=== PATIENT | female | born 1975 | race Caucasian/White ===

== ENCOUNTER 2017-04-17 20:31 | Observation (INO) ==
--- NOTE | 2017-04-17 21:01 | Emergency Department Note ---
START Narrative - START START: I examined this patient and my medical decision-making was reviewed with the Resident Physician. I agree with the documented findings, disposition and treatment plan as described except to the extent set forth below. 42-year-old female presents emergency room for headache and left facial numbness specifically involving the crack of the left mouth and lips. No right sided complaints. No left arm or left leg involvement. No speech or vision changes. She also has a diffuse headache. No history of this in the past. She does not smoke. No cardiac history. A workup for CVA TIA symptoms with a CT had an lab work. Patient will need to be admitted.
--- NOTE | 2017-04-17 21:02 | Emergency Department Note ---
Disposition Clinical Impression: Left facial numbness Headache Qualifiers: Headache type: unspecified Headache chronicity pattern: unspecified pattern Intractability: not intractable Qualified Code(s): R51 - Headache Disposition: Admitted As Inpatient Condition: Good Forms: ED Satisfaction Letter Time of Disposition: 21:39 General Adult HPI - General Chief complaint: ED Headache Stated complaint: head ache with funny feeling on leftside of face Time Seen by Provider: 04/17/17 20:34 Source: patient Nursing Notes Reviewed: Yes Vital Signs Reviewed: Yes - History of Present Illness HPI Narrative: Patient is a 42-year-old female who presents to emergency department with headache and left facial numbness. She states that this is been intermittent for the past 3 days. Patient denies any arm or leg involvement. No difficulty with speech or vision. Patient states that she has been somewhat nauseated. She states that the majority of the numbness is near the corner of the mouth on the left. She states that this comes and goes. She has never had anything like this before. Nothing seems to make this any better or worse. She has tried Tylenol without any relief. She states that she is having some sensitivity to light. She describes her headache as sharp and achy frontal aspect of her head. She rates the pain as 8 out of 10. She states she has had headaches in the past but this feels different because most of her headaches occur in the posterior aspect of her head and neck. Pain Scale: 8 - Related Data Previous Rx's Medication Instructions Recorded predniSONE [PredniSONE] 20 mg PO DAILY #10 tablet 01/26/17 Allergies Allergy/AdvReac Type Severity Reaction Status Date / Time No Known Allergies Allergy Verified 04/17/17 20:38 All systems ED: reviewed and negative except as stated. Neurological: Reports: headache, numbness (At the left corner of her mouth and the left side of the face) Past Medical History - Past Medical History Medical history: Reports: GERD, kidney stones, migraine, other Surgical history: Reports: cholecystectomy, other Psychiatric history: Reports: anxiety, depression ENV[employer]MENT[employer] SAF[employer]Y SPECIALIST history: Reports: other - Social History Smoking Status: Never smoker Smokeless Tobacco Status: No Alcohol use: Reports: occasionally Drug use: Reports: marijuana Physical Exam - General Limitations: no limitations General appearance: alert, in no apparent distress - Head Head exam: atraumatic, normocephalic - Eye Eye exam: Present: normal appearance, EOMI - Neck Neck exam: Present: normal inspection, full ROM, trachea midline - Respiratory Respiratory exam: Present: normal lung sounds bilaterally. Absent: respiratory distress - Cardiovascular Cardiovascular exam: Present: regular rate, normal rhythm, normal heart sounds, +S1, +S2 - Abdominal Exam Abdominal exam: Present: soft, Non-Tender, normal bowel sounds - Neurological Exam Neurological exam: Present: alert, oriented X3 - Expanded Neurological Exam Speech: Present: fluid speech Cranial nerves: EOM function (II, III, IV, ): Normal, facial sensation (V): Abnormal Left (Patient has decreased sensation on the left side of her face), facial palsy (VII): Normal, gag reflex (IX): Normal, spinal accessory function ( XI): Normal, tongue deviation (XII): Normal Cerebellar function: finger to nose: Normal, heel to fuentes: Normal Motor strength - LUE: 5/5 Motor strength - RUE: 5/5 Motor strength - LLE: 5/5 Motor strength - RLE: 5/5 Upper motor neuron exam: pronator drift: Absent bilaterally Sensory exam upper extremity: light touch: Normal Sensory exam lower extremity: light touch: Normal Coma Scale Eye Opening: Spontaneous Coma Scale Motor Response: Obeys Commands Coma Scale Verbal Response: Oriented Coma Scale Total: 15 - Psychiatric Psychiatric exam: Present: normal affect, normal mood - Skin Skin exam: Present: warm, dry, intact Course Vital Signs Temperature 97.4 F L 04/17/17 20:34 Pulse Rate 78 04/17/17 20:34 Respiratory Rate 18 04/17/17 20:34 Blood Pressure 155/102 04/17/17 20:34 O2 Sat by Pulse Oximetry 97 04/17/17 20:34 Temperature 97.4 F L 04/17/17 20:34 Pulse Rate 70 04/17/17 21:22 Respiratory Rate 16 04/17/17 21:22 Blood Pressure 133/76 04/17/17 21:22 O2 Sat by Pulse Oximetry 96 04/17/17 21:22 Oxygen Delivery Oxygen Delivery Room Air Medical Decision Making - MDM Narrative Medical decision making narrative: Due to the patient headache and numbness around the left corner of her mouth there is concern that the patient could be having a TIA due to these symptoms being intermittent. Patient will get a CT scan of her head. We also do a CBC, BMP, EKG and magnesium. Due to the patient's symptoms the patient will likely need to be admitted to the hospital. She will likely need a follow-up MRI to rule out stroke. Due to the patient's symptoms being ongoing for the past 3 days the patient is not a candidate for thrombolytics. CT of the head was negative for acute intracranial abnormality. The patient will need to be admitted to the hospital for further evaluation and management. The patient may need an MRI to further evaluate for stroke. We have called and spoke with the hospitalist and they have accepted the patient their service. The patient will be admitted to the hospital at this time. - Medical Records Medical records reviewed: Yes I reviewed the patient's medical records. - Lab Data Lab results reviewed: Yes I reviewed the patient's lab results. - Radiology Data Radiology results reviewed: Yes I reviewed the patient's radiology results. Head CT 04/17/17 20:53 IMPRESSION: No acute intracranial abnormality. If there is ongoing concern for stroke, MRI is more sensitive. D/ / Siddharth Rothman / Siddharth Rothman Interpreting Provider: Siddharth Rothman - EKG Data EKG #1 EKG attestation: Yes I reviewed and interpreted this EKG. EKG results narrative: EKG showed a sinus rhythm at a rate of 80 bpm, MN interval of 151, QS duration at 95, QTC of 421 with a normal axis.
[2017-04-17] MEDS ORDERED: Aspirin 325 MG TABLET PO ONE (21:22)
[2017-04-17 21:51] LABS: Basophils % 0.4 %; Eosinophils # 0.1 K/mcL (0.0-0.6); Eosinophils % 1.1 %; Hematocrit 44.8 % (35.3-44.9); Hemoglobin 14.2 g/dL (11.5-15.4); Immature Granulocytes % 0.4 % (0-4); Immature Platelets 5.9 % (1.1-6.1); Lymphocytes # 2.5 K/mcL (0.6-4.6); Lymphocytes % 25.8 %; Mean Corpuscular HGB Conc 31.7 g/dL (31.6-35.5); Mean Corpuscular Hemoglobin 28.1 pg (28.0-33.3); Mean Corpuscular Volume 88.5 fL (83.0-100.0); Mean Platelet Volume 11.1 fL (9.4-12.4); Monocytes # 0.6 K/mcL (0.0-1.3); Monocytes % 6.2 %; Neutrophils # 6.4 K/mcL (1.6-8.9); Platelet Count 244 K/mcL (140-400); Red Blood Count 5.06 M/mcL (3.82-4.97); Red Cell Distribution Width 13.2 % (11.5-14.5); Segmented Neutrophils % 66.1 %
[2017-04-17 22:00] LABS: Prothrombin Time 10.6 Seconds (9.4-12.1)
[2017-04-17 22:03] LABS: Activated Partial Thrombo Time 25.8 Seconds (26.0-36.0)
[2017-04-17 22:07] LABS: BUN/Creatinine Ratio 20 (6-26); Blood Urea Nitrogen 16 mg/dL (6-20); Calcium 8.9 mg/dL (8.6-10.3); Carbon Dioxide 26 mEq/L (23-29); Chloride 109 mEq/L (98-107); Glucose 122 mg/dL (70-105); Osmolality,Calculated 292 (280-300); Potassium 3.9 mEq/L (3.5-5.1); Sodium 140 mEq/L (136-145); eGFR For African Americans > 60 (> 60); eGFR For Non-African Americans > 60 (> 60)
[2017-04-17] MEDS ORDERED: Acetaminophen 325 MG TABLET PO PRN (22:48)
[2017-04-17] MEDS ORDERED: Ondansetron 4 MG/2 ML VIAL IVP PRN (22:48)
[2017-04-17] MEDS ORDERED: Naloxone 0.4 MG/ML INJ IVP PRN (22:48)
[2017-04-17] MEDS ORDERED: Melatonin 3 MG TABLET PO PRN (22:53)
--- NOTE | 2017-04-17 22:58 | Internal Med History&Physical ---
Date of Encounter: 04/17/17 Time of Encounter: 22:57 Assessment and Plan (1) Left facial numbness Current visit: Yes Status: Acute Likely diagnosis CVA/TIA or complicated migraine vs other. Will follow-up with stat MRI, lipid panel, echocardiogram, carotid ultrasound. Neurochecks Q4H. (2) Headache Current visit: Yes Status: Acute Could be related to CVA or other intracranial abnormality. Follow-up MRI. Complex migraine is also possible as she has had these in the past and she is complaining of photophobia, phonophobia, nausea with neuro symptoms. Continue with plan as per problem #1. May benefit from IV benadryl or compazine. Would avoid Excedrin and Triptans until stroke is ruled out. Qualifiers: Headache type: unspecified Headache chronicity pattern: unspecified pattern Intractability: not intractable Qualified Code(s): R51 - Headache (3) Elevated blood pressure reading Current visit: Yes Status: Acute Undiagnosed hypertension vs acute stress. Will monitor and give IV hydralazine prn. (4) Hyperglycemia Current visit: Yes Status: Acute Unsure if patient was fasting at the time of this lab draw. Will obtain hemoglobin a1c to evaluate for diabetes. Internal Medicine - H&P: HPI Admitted From: Home History of present illness: Patient is a 42-year-old female who presents to emergency department with headache and left facial numbness. She states that this is been intermittent for the past 3 days. Accompanied with nausea. Denies focal weakness, aphasia, slurred speech, blurry vision, palpitations, chest pain, gait abnormalities. Headache is sharp and pounding, generalized, lasting for hours sometimes all day. Tried aspirin and Tylenol without relief. She denies fevers/chills, neck stiffness. She has had migraines several years ago. Current headache worsens with light and loud noise. She has significant family history of CAD, both her grandfather and father diagnosed with CAD in their 40s. In ED, patient had CT done showing no acute intracranial abnormality. CBC and BMP were unremarkable outside of elevated glucose in 120s range. She received 325 mg aspirin. Past Med Surg Social Fam HX - Past Medical History Medical history: GERD, kidney stones, migraine, other Psychiatric history: anxiety, depression - Past Surgical History Surgical History: cholecystectomy, other - Social History Smoking Status: Former smoker Smokeless Tobacco Status: No Alcohol use: occasionally Drug use: none - Family History Father Living Status: Still Living Hx Family Cardiac Disorders: Yes (PA (multiple)) Hx Family Endocrine Disorder: Yes (DM) Hx Family Medical Disorders: Yes (HTN) Mother Living Status: Still Living Hx Family Endocrine Disorder: Yes (DM) Hx Family Medical Disorders: Yes (HTN) Internal Medicine - H&P: Meds 3 Allergy/AdvReac Type Severity Reaction Status Date / Time No Known Allergies Allergy Verified 04/17/17 20:38 All Systems PM: A 10-system review of systems was performed and is negative for pertinent findings except as documented above in the HPI. - Constitutional Constitutional: no chills, no fever(s), no night sweats - EENT Eyes: no change in vision, no discharge, no pain, no tunnel vision Nose, mouth and throat: no dysphagia, no nasal discharge, no neck pain, no sore throat - Cardiovascular Cardiovascular ROS IM: no chest pain, no diaphoresis, no dyspnea, no lightheadedness, no palpitations, no syncope - Gastrointestinal Gastrointestinal: no abdominal pain, no diarrhea, no hematemesis, no hematochezia, no melena, no nausea, no vomiting - Musculoskeletal Musculoskeletal ROS IM: no numbness, no tingling - Integumentary Integumentary IM: no rash, no unusual bruising - Neurological Neurological ROS: numbness (left perioral region), tingling, no abnormal gait, no abnormal hearing, no abnormal movements, no abnormal speech, no behavioral changes, no burning sensations, no confusion, no convulsions, no radicular pain , no restless legs, no tremor(s), no vertigo, no weakness - Constitutional Vitals: Temp Pulse Resp BP Pulse Ox 97.5 F L 75 16 133/89 97 04/17/17 22:26 04/17/17 22:26 04/17/17 22:26 04/17/17 22:26 04/17/17 22:53 General appearance: Present: A&O X 3, morbidly obese, no acute distress, answers questions appropriately - Head Head exam: Present: atraumatic, normocephalic - Eye Eye exam: Present: PERRL, conjuntiva pink, sclera anicteric Pupils: Present: PERRL - Neurological Exam Neurological exam: Present: alert, CN II-XII intact, normal gait, oriented X3, reflexes normal, no focal deficits, strengths equal and symetr throughout. Absent: pronater drift, facial droop, speech deficit Additional comments: DTR of left leg could not be done because patient has severe knee pain from past surgery. Left achilles reflex unable to be done because of chronic pain as well. Strength of lower leg is normal and equal to right leg. - Skin Skin exam: Present: dry, intact Internal Med - H&P Results - Labs CBC & Chem 7: 04/17/17 21:43 04/17/17 21:43
[2017-04-17] MEDS ORDERED: Prochlorperazine 10 MG/2 ML VIAL IM PRN (23:51)
[2017-04-18 05:34] LABS: Chol/HDL Ratio 4.4 (0-4.9)
[2017-04-18] MEDS ORDERED: *HR* Enoxaparin 40 MG/0.4 ML SYRINGE SQ SCH (06:00)
[2017-04-18] MEDS ORDERED: Aspirin 81 MG TAB.CHEW PO SCH (09:00)
[2017-04-18 11:01] VITALS: BP 107/68
--- NOTE | 2017-04-18 12:49 | Discharge Summary ---
Date of Encounter: 04/18/17 Time of Encounter: 08:20 - Discharge Diagnosis (1) Left facial numbness Priority: Secondary Status: Acute Comments: Pt admitted with c/o left facial numbness, intermittently for 3 days. No association with headache or dizziness. She does report nausea. Pt has no other deficits. Gait is steady, grasps are strong and equal jean, facial movement is symmetrical, speech is clear. Most likely due to atypical migraine. Echo suboptimal, EF 55-60%, no evidence of PFO, no significant valvular dysfunction. Elective IAN would provide improved image. Bilateral carotids normal bilaterally. Will send home with IMitrex 50mg po BID x 2/day Will give Fiorcet now. Pt will follow up with neurology in the clinic. Head CT 04/17/17 20:53 IMPRESSION: No acute intracranial abnormality. If there is ongoing concern for stroke, MRI is more sensitive. D/ / Siddharth Rothman / Siddharth Rothman Interpreting Provider: Siddharth Rothman Brain MRI 04/17/17 22:41 IMPRESSION: Unremarkable MRI of the brain without contrast. No acute intracranial abnormality. No acute infarction. D/ / Mary Carmen Dasilva MD / Mary Carmen Dasilva MD Interpreting Provider: Mary Carmen Dasilva MD Echocardiogram 04/18/17 10:00 Impressions: LVEF 55-60%. No evidence of PFO by color Doppler or agitated saline but suboptimal study. Elective IAN would provide improved diagnostic sensitivity for detection of cardioembolic source. No significant valvular dysfunction. Left Ventricular Wall Motion: Rest Echo Findings All wall segments showed normal motion. 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 I consulted Dr. Felix privately, pt can follow up in the office after discharge. Pt states that she was on "a little bit of everything" to help her migraine. Will send home with rx for Imitrex 50mg (3) Elevated blood pressure reading Priority: Secondary Status: Acute Comments: Blood pressure has normalized. Continue to monitor. (4) Hyperglycemia Priority: Secondary Status: Chronic Comments: A1c 6.0%, in the prediabetes range. Implement lifestyle modifications. (5) DVT prophylaxis Priority: Secondary Status: Acute Comments: Lovenox SQ - Discharge Medications Prescriptions: Aspirin 81 mg PO DAILY #30 tab.chew SUMAtriptan succinate [Imitrex] 50 mg PO Q2H PRN #6 tablet PRN Reason: Migraine Headache Home Medications: Aspirin 81 mg PO DAILY #30 tab.chew 04/18/17 [Rx] SUMAtriptan succinate [Imitrex] 50 mg PO Q2H PRN #6 tablet 04/18/17 [Rx] Allergies/Adverse Reactions: 3 Allergy/AdvReac Type Severity Reaction Status Date / Time No Known Allergies Allergy Verified 04/17/17 20:38 Procedures/tests Complete & Pending: Procedures Performed prior 72 hours Category Date Time Status MR head/brain wo con [MR] Stat MRI 04/17/17 22:41 Completed EV carotid duplex imaging BI Routine Y 04/18/17 10:00 Completed EV echocardiogram Routine Y 04/18/17 10:00 Completed Date of admission: 04/17/17 21:44 Primary care physician: PCP NONE Discharging clinician: Brenda Sevilla Anticipated date of discharge: 04/18/17 - Patient Status Disposition: Home, Self-Care Condition: Good Functional capacity at discharge: independent ambulation Overall status at discharge: patient is progressing back to baseline - Discharge Instructions Follow Up With: NONE,PCP [Primary Care Provider] - Additional Instructions: Please follow up with neurology and your PCP in the next 7-10 days for a recheck. Return to the ER as needed for any other problems or concerns. Resume your normal activities as tolerated. Take Imitrex as directed. - Diet and Activity Activity: increase activity as tolerated Diet: advance to your usual diet Hospital course: Ms. Riojas is a 42 year old female with PMH of migraines who presents with left facial numbness, most likely atypical migraine. MRI and head CT negative. Echo and carotids negative. Pt has no deficits. Labs and vitals are wnl and pt will need to follow up with neurology in the clinic. Pt is stable for discharge. - Time Spent with Patient Total time spent providing and/or coordinating discharge services: Less than 30 minutes - Constitutional Vitals: Temp Pulse Resp BP Pulse Ox 97.8 F 78 17 107/68 95 04/18/17 10:59 04/18/17 10:59 04/18/17 10:59 04/18/17 10:59 04/18/17 10:59 General appearance: Present: cooperative, A&O X 3, morbidly obese, pleasant, no acute distress, obese, answers questions appropriately - Head Head exam: Present: atraumatic, normal inspection, normocephalic - Eye Eye exam: Present: EOMI, normal appearance, conjuntiva pink, sclera anicteric. Absent: nystagmus - Neck Neck exam general surgery: Present: normal inspection, supple, trachea midline. Absent: lymphadenopathy, tenderness - Respiratory Respiratory exam: Present: CTAB. Absent: accessory muscle use, chest wall tenderness, prolonged expiratory phase, rales, rhonchi, wheezes - Cardiovascular Cardiovascular exam: Present: RRR, +S1, +S2. Absent: diastolic murmur, gallop, rubs, systolic murmur - GI/Abdominal GI/Abdominal exam: Present: normal bowel sounds, soft, no peritoneal signs. Absent: distended, hepatomegaly, tenderness - Extremities Exam Extremities exam: Present: normal capillary refill, normal inspection, warm, radial pulses palpable and symmetrical. Absent: calf tenderness, cyanotic, pedal edema, tenderness - Neurological Exam Neurological exam: Present: alert, motor sensory deficit, normal gait, oriented X3, no focal deficits, strengths equal and symetr throughout. Absent: altered, pronater drift, facial droop, speech deficit - Skin Skin exam: Present: dry, intact, normal color, warm. Absent: rash
[2017-04-18] MEDS ORDERED: Acetaminophen/Butalbital/CaffeineTABLET PO PRN (13:01)
== END 2017-04-18 13:54 | disposition home or self-care (01) ==
LOC: 3BNU 20:31 → EMEROO 20:31 → 3BNU 22:10
PROVIDERS: ADMIT Student in an Organized Health Care Education/Training Program; ATTEND Registered Nurse

== ENCOUNTER 2018-03-10 21:38 | Observation (INO) ==
[2018-03-10] MEDS ORDERED: Ondansetron 4 MG/2 ML VIAL IVP ONE (22:32)
[2018-03-10] MEDS ORDERED: *HR* HYDROmorphone (PF) 1 MG/ML SYRINGE IVP ONE (22:32)
[2018-03-10 22:48] LABS: Basophils % 0.4 %; Eosinophils # 0.1 K/mcL (0.0-0.6); Eosinophils % 0.8 %; Hematocrit 44.4 % (35.3-44.9); Hemoglobin 14.6 g/dL (11.5-15.4); Immature Granulocytes % 0.5 % (0-4); Lymphocytes # 1.8 K/mcL (0.6-4.6); Lymphocytes % 16.3 %; Mean Corpuscular HGB Conc 32.9 g/dL (31.6-35.5); Mean Corpuscular Hemoglobin 28.6 pg (28.0-33.3); Mean Corpuscular Volume 86.9 fL (83.0-100.0); Mean Platelet Volume 10.4 fL (9.4-12.4); Monocytes # 0.8 K/mcL (0.0-1.3); Monocytes % 7.1 %; Neutrophils # 8.2 K/mcL (1.6-8.9); Platelet Count 244 K/mcL (140-400); Red Blood Count 5.11 M/mcL (3.82-4.97); Red Cell Distribution Width 13.7 % (11.5-14.5); Segmented Neutrophils % 74.9 %
[2018-03-10] MEDS: 0.9 % Sodium Chloride 1,000 ML IVC SCH (22:57)
[2018-03-10 23:09] LABS: BUN/Creatinine Ratio 23 (6-26); Blood Urea Nitrogen 17 mg/dL (6-20); Calcium 9.3 mg/dL (8.6-10.3); Carbon Dioxide 24 mEq/L (23-29); Chloride 104 mEq/L (98-107); Glucose 140 mg/dL (70-105); Osmolality,Calculated 288 (280-300); Potassium 3.9 mEq/L (3.5-5.1); Sodium 137 mEq/L (136-145); eGFR For Non-African Americans > 60 (> 60)
[2018-03-10 23:17] LABS: Bilirubin,Urine Negative (Negative); Blood,Urine Moderate (Negative); Clarity,Urine Cloudy (Clear); Color,Urine Yellow (Yellow); Glucose,Urine (UA) Normal (Normal); Ketones,Urine Negative (Negative); Leukocyte Esterase,Urine Moderate (Negative); Nitrite,Urine Negative (Negative); PH,Urine 5.5 pH Units (5.0-8.0); Protein,Urine Negative (Neg-Trace); Specific Gravity,Urine 1.019 (1.010-1.025); Urobilinogen,Urine Normal (Normal)
[2018-03-10 23:19] LABS: Bacteria,Urine Few per hpf (None-Few); Hyaline Casts,Urine None Seen per lpf (None-Few); RBC,Urine 15-30 per hpf (0-3); Squamous Epithelial Cell,Urine Many per lpf (None-Few); WBC,Urine 30-50 per hpf (0-3)
[2018-03-11] MEDS ORDERED: Ketorolac 15 MG/ML VIAL IVP ONE (00:01)
[2018-03-11] MEDS ORDERED: Hyoscyamine 0.5 MG/ML MLS IVP ONE (00:01)
[2018-03-11] MEDS ORDERED: *HR* HYDROmorphone (PF) 1 MG/ML SYRINGE IVP ONE (00:01)
[2018-03-11] MEDS ORDERED: 0.9 % Sodium Chloride 1,000 ML IVC ONE (00:08)
--- NOTE | 2018-03-11 00:08 | Emergency Department Note ---
Disposition Clinical Impression: Kidney stone, Intractable pain Disposition: Admitted As Inpatient Condition: Fair Forms: ED Satisfaction Letter Time of Disposition: 00:10 Female Urogenital HPI - General Chief complaint: ED Urogenital-Female Stated complaint: Possible Kidney Stone Time Seen by Provider: 03/10/18 22:23 Source: patient Mode of arrival: ambulatory Limitations: no limitations Nursing Notes Reviewed: Yes Vital Signs Reviewed: Yes - History of Present Illness HPI Narrative: Patient presents to the ED with the acute onset of right-sided flank pain radiating to her right lower quadrant. Has a history kidney stones requiring retrieval in the past. States this feels similar. Onset was just couple hours ago. Some nausea but no vomiting. No fever, chills, chest pain, shortness of breath, other abdominal pain, diarrhea, rash, pain or swelling in her legs. - Related Data Previous Rx's Medication Instructions Recorded Aspirin 81 mg PO DAILY #30 tab.chew 04/18/17 SUMAtriptan succinate [Imitrex] 50 mg PO Q2H PRN #6 tablet 04/18/17 Amoxicillin [Amoxil] 500 mg PO BID #20 capsule 06/22/17 Benzonatate [Tessalon] 100 mg PO TID #15 capsule 06/22/17 Loratadine/Pseudophed (12 HR) 1 each PO BID #20 tab.er.12h 06/22/17 [Claritin D (12HR)] Ondansetron HCl [Zofran] 4 mg PO TID #15 tablet 06/22/17 Amoxicillin 875 mg PO BID #20 tablet 09/20/17 Guaifenesin [Mucinex] 1,200 mg PO BID #6 tbbp.12hr 09/20/17 Ibuprofen [Motrin] 600 mg PO Q6HR PRN #20 tab 09/20/17 Cetirizine HCl/Pseudoephedrine 1 each PO BID #14 tab.er.12h 09/27/17 [All Day Allergy-D Tablet] Lidocaine Patch [Lidoderm 5% patch] 1 each TP DAILY #10 adh..patch 10/06/17 Allergies Allergy/AdvReac Type Severity Reaction Status Date / Time No Known Allergies Allergy Verified 09/27/17 15:16 Review of Systems: As reviewed in the HPI. All other systems reviewed are negative or normal. Past Medical History - Past Medical History Attestation: Yes The following information was validated with the patient. Source: patient Medical history: Reports: kidney stones Surgical history: Reports: cholecystectomy, other Psychiatric history: Reports: anxiety, depression PISTON [employer] history: Reports: other - Social History Smoking Status: Former smoker Smokeless Tobacco Status: No Alcohol use: Reports: occasionally Drug use: Reports: none Physical Exam CONSTITUTIONAL: [well appearing, alert and in no acute distress, but does appear uncomfortable] EYES: [EOMI, clear conjunctiva, PERRLA] HENT: [Normocephalic, atraumatic, moist mucus membranes, normal oropharynx] NECK: [normal inspection, full ROM, trachea midline, no obvious swelling] PULMONARY: [normal lung sounds bilaterally, normal chest rise and fall, no respiratory distress or stridor, no wheezes, no rales, no rhonchi CARDIOVASCULAR: [regular rate, regular rhythm, normal heart sounds, no murmurs, distal extremities are warm and well perfused] GASTROINSTESTINAL: [soft, non-tender, non-rigid, non-distended, no guarding, no rebound, normal bowel sounds, positive right sided flank tenderness with some mild right-sided abdominal tenderness] GENITOURINARY/RECTAL: [deferred] NEUROLOGIC: [Alert, oriented x3, normal speech, moves all extremities] EXTREMITIES: [Normal inspection, full ROM, no tenderness, no pedal edema, normal capillary refill] MUSCULOSKELETAL: [no gross deformities, atraumatic] SKIN: [No cyanosis, no diaphoresis, normal color, warm, no rash] PSYCHIATRIC: [normal mood and affect] - General Limitations: no limitations General appearance: alert Course Course Narrative: Patient likely presenting with kidney stone. Will get CTA and attempt pain control. Patient does have an obstructing kidney stone. Her pain is been difficult to control, so we will admit for pain control and urology evaluation morning. Vital Signs Temperature 98 F 03/10/18 22:10 Pulse Rate 73 03/10/18 22:10 Respiratory Rate 20 03/10/18 22:10 Blood Pressure 136/97 03/10/18 22:10 O2 Sat by Pulse Oximetry 96 03/10/18 22:10 Temperature 98 F 03/10/18 22:10 Pulse Rate 73 03/10/18 22:10 Respiratory Rate 20 03/10/18 22:10 Blood Pressure 136/97 03/10/18 22:10 O2 Sat by Pulse Oximetry 96 03/10/18 22:10 Oxygen Delivery Oxygen Delivery Room Air Urogenital-Female - Lab Data Result diagrams: 03/10/18 22:30 03/10/18 22:30 Lab Results 03/10/18 03/10/18 03/10/18 Range/Units 22:30 22:30 23:01 WBC 11.0 (4.3-11.1) K/mcL RBC 5.11 H (3.82-4.97) M/mcL Hgb 14.6 (11.5-15.4) g/dL Hct 44.4 (35.3-44.9) % MCV 86.9 (83.0-100.0) fL MCH 28.6 (28.0-33.3) pg MCHC 32.9 (31.6-35.5) g/dL RDW 13.7 (11.5-14.5) % Plt Count 244 (140-400) K/mcL MPV 10.4 (9.4-12.4) fL Immature Gran % 0.5 (0-4) % Seg Neutrophils % 74.9 % Lymphocytes % 16.3 % Monocytes % 7.1 % Eosinophils % 0.8 % Basophils % 0.4 % Neutrophils # 8.2 (1.6-8.9) K/mcL Lymphocytes # 1.8 (0.6-4.6) K/mcL Monocytes # 0.8 (0.0-1.3) K/mcL Eosinophils # 0.1 (0.0-0.6) K/mcL Basophils # 0.0 (0.0-0.2) K/mcL Sodium 137 (136-145) mEq/L Potassium 3.9 (3.5-5.1) mEq/L Chloride 104 (98-107) mEq/L Carbon Dioxide 24 (23-29) mEq/L BUN 17 (6-20) mg/dL Creatinine 0.74 (0.60-1.20) mg/dL Est GFR ( Amer) > 60 (> 60) Est GFR (Non-Af Amer) > 60 (> 60) BUN/Creatinine Ratio 23 (6-26) Glucose 140 H (70-105) mg/dL Calculated Osmolality 288 (280-300) Calcium 9.3 (8.6-10.3) mg/dL Urine Color Yellow (Yellow) Urine Clarity Cloudy A (Clear) Urine pH 5.5 (5.0-8.0) pH Units Ur Specific [place] 1.019 (1.010-1.025) Urine Protein Negative (Neg-Trace) mg/dL Urine Glucose (UA) Normal (Normal) mg/dL Urine Ketones Negative (Negative) mg/dL Urine Blood Moderate H (Negative) Urine Nitrite Negative (Negative) Urine Bilirubin Negative (Negative) Urine Urobilinogen Normal (Normal) mg/dL Ur Leukocyte Esterase Moderate H (Negative) Urine Microscopic RBC 15-30 H (0-3) per hpf Urine Microscopic WBC 30-50 H (0-3) per hpf Ur Squamous Epith Cells Many H (None-Few) per lpf Urine Bacteria Few (None-Few) per hpf Hyaline Casts None Seen (None-Few) per lpf Ur Culture Indicated? NO. A (NO) Urine Test (Negative) 03/10/18 Range/Units 23:01 WBC (4.3-11.1) K/mcL RBC (3.82-4.97) M/mcL Hgb (11.5-15.4) g/dL Hct (35.3-44.9) % MCV (83.0-100.0) fL MCH (28.0-33.3) pg MCHC (31.6-35.5) g/dL RDW (11.5-14.5) % Plt Count (140-400) K/mcL MPV (9.4-12.4) fL Immature Gran % (0-4) % Seg Neutrophils % % Lymphocytes % % Monocytes % % Eosinophils % % Basophils % % Neutrophils # (1.6-8.9) K/mcL Lymphocytes # (0.6-4.6) K/mcL Monocytes # (0.0-1.3) K/mcL Eosinophils # (0.0-0.6) K/mcL Basophils # (0.0-0.2) K/mcL Sodium (136-145) mEq/L Potassium (3.5-5.1) mEq/L Chloride (98-107) mEq/L Carbon Dioxide (23-29) mEq/L BUN (6-20) mg/dL Creatinine (0.60-1.20) mg/dL Est GFR ( Amer) (> 60) Est GFR (Non-Af Amer) (> 60) BUN/Creatinine Ratio (6-26) Glucose (70-105) mg/dL Calculated Osmolality (280-300) Calcium (8.6-10.3) mg/dL Urine Color (Yellow) Urine Clarity (Clear) Urine pH (5.0-8.0) pH Units Ur Specific [place] (1.010-1.025) Urine Protein (Neg-Trace) mg/dL Urine Glucose (UA) (Normal) mg/dL Urine Ketones (Negative) mg/dL Urine Blood (Negative) Urine Nitrite (Negative) Urine Bilirubin (Negative) Urine Urobilinogen (Normal) mg/dL Ur Leukocyte Esterase (Negative) Urine Microscopic RBC (0-3) per hpf Urine Microscopic WBC (0-3) per hpf Ur Squamous Epith Cells (None-Few) per lpf Urine Bacteria (None-Few) per hpf Hyaline Casts (None-Few) per lpf Ur Culture Indicated? (NO) Urine Test Negative (Negative)
--- NOTE | 2018-03-11 00:08 | Emergency Department Note ---
Disposition Forms: ED Satisfaction Letter General Adult HPI - General Chief complaint: ED Urogenital-Female Stated complaint: Possible Kidney Stone Time Seen by Provider: 03/10/18 22:23 Source: patient Limitations: no limitations - History of Present Illness Pain Scale: 10 - Related Data Previous Rx's Medication Instructions Recorded Aspirin 81 mg PO DAILY #30 tab.chew 04/18/17 SUMAtriptan succinate [Imitrex] 50 mg PO Q2H PRN #6 tablet 04/18/17 Amoxicillin [Amoxil] 500 mg PO BID #20 capsule 06/22/17 Benzonatate [Tessalon] 100 mg PO TID #15 capsule 06/22/17 Loratadine/Pseudophed (12 HR) 1 each PO BID #20 tab.er.12h 06/22/17 [Claritin D (12HR)] Ondansetron HCl [Zofran] 4 mg PO TID #15 tablet 06/22/17 Amoxicillin 875 mg PO BID #20 tablet 09/20/17 Guaifenesin [Mucinex] 1,200 mg PO BID #6 tbbp.12hr 09/20/17 Ibuprofen [Motrin] 600 mg PO Q6HR PRN #20 tab 09/20/17 Cetirizine HCl/Pseudoephedrine 1 each PO BID #14 tab.er.12h 09/27/17 [All Day Allergy-D Tablet] Lidocaine Patch [Lidoderm 5% patch] 1 each TP DAILY #10 adh..patch 10/06/17 Allergies Allergy/AdvReac Type Severity Reaction Status Date / Time No Known Allergies Allergy Verified 09/27/17 15:16 Past Medical History - Past Medical History Medical history: Reports: kidney stones Surgical history: Reports: cholecystectomy, other Psychiatric history: Reports: anxiety, depression 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 - Social History Smoking Status: Former smoker Smokeless Tobacco Status: No Alcohol use: Reports: occasionally Drug use: Reports: none Physical Exam - General Limitations: no limitations General appearance: alert Course Vital Signs Temperature 98 F 03/10/18 22:10 Pulse Rate 73 03/10/18 22:10 Respiratory Rate 20 03/10/18 22:10 Blood Pressure 136/97 03/10/18 22:10 O2 Sat by Pulse Oximetry 96 03/10/18 22:10 Temperature 98 F 03/10/18 22:10 Pulse Rate 73 03/10/18 22:10 Respiratory Rate 20 03/10/18 22:10 Blood Pressure 136/97 03/10/18 22:10 O2 Sat by Pulse Oximetry 96 03/10/18 22:10 Oxygen Delivery Oxygen Delivery Room Air Medical Decision Making - Lab Data Result diagrams: 03/10/18 22:30 03/10/18 22:30 Lab Results 03/10/18 03/10/18 03/10/18 Range/Units 22:30 22:30 23:01 WBC 11.0 (4.3-11.1) K/mcL RBC 5.11 H (3.82-4.97) M/mcL Hgb 14.6 (11.5-15.4) g/dL Hct 44.4 (35.3-44.9) % MCV 86.9 (83.0-100.0) fL MCH 28.6 (28.0-33.3) pg MCHC 32.9 (31.6-35.5) g/dL RDW 13.7 (11.5-14.5) % Plt Count 244 (140-400) K/mcL MPV 10.4 (9.4-12.4) fL Immature Gran % 0.5 (0-4) % Seg Neutrophils % 74.9 % Lymphocytes % 16.3 % Monocytes % 7.1 % Eosinophils % 0.8 % Basophils % 0.4 % Neutrophils # 8.2 (1.6-8.9) K/mcL Lymphocytes # 1.8 (0.6-4.6) K/mcL Monocytes # 0.8 (0.0-1.3) K/mcL Eosinophils # 0.1 (0.0-0.6) K/mcL Basophils # 0.0 (0.0-0.2) K/mcL Sodium 137 (136-145) mEq/L Potassium 3.9 (3.5-5.1) mEq/L Chloride 104 (98-107) mEq/L Carbon Dioxide 24 (23-29) mEq/L BUN 17 (6-20) mg/dL Creatinine 0.74 (0.60-1.20) mg/dL Est GFR ( Amer) > 60 (> 60) Est GFR (Non-Af Amer) > 60 (> 60) BUN/Creatinine Ratio 23 (6-26) Glucose 140 H (70-105) mg/dL Calculated Osmolality 288 (280-300) Calcium 9.3 (8.6-10.3) mg/dL Urine Color Yellow (Yellow) Urine Clarity Cloudy A (Clear) Urine pH 5.5 (5.0-8.0) pH Units Ur Specific [place] 1.019 (1.010-1.025) Urine Protein Negative (Neg-Trace) mg/dL Urine Glucose (UA) Normal (Normal) mg/dL Urine Ketones Negative (Negative) mg/dL Urine Blood Moderate H (Negative) Urine Nitrite Negative (Negative) Urine Bilirubin Negative (Negative) Urine Urobilinogen Normal (Normal) mg/dL Ur Leukocyte Esterase Moderate H (Negative) Urine Microscopic RBC 15-30 H (0-3) per hpf Urine Microscopic WBC 30-50 H (0-3) per hpf Ur Squamous Epith Cells Many H (None-Few) per lpf Urine Bacteria Few (None-Few) per hpf Hyaline Casts None Seen (None-Few) per lpf Ur Culture Indicated? NO. A (NO) Urine Test (Negative) 03/10/18 Range/Units 23:01 WBC (4.3-11.1) K/mcL RBC (3.82-4.97) M/mcL Hgb (11.5-15.4) g/dL Hct (35.3-44.9) % MCV (83.0-100.0) fL MCH (28.0-33.3) pg MCHC (31.6-35.5) g/dL RDW (11.5-14.5) % Plt Count (140-400) K/mcL MPV (9.4-12.4) fL Immature Gran % (0-4) % Seg Neutrophils % % Lymphocytes % % Monocytes % % Eosinophils % % Basophils % % Neutrophils # (1.6-8.9) K/mcL Lymphocytes # (0.6-4.6) K/mcL Monocytes # (0.0-1.3) K/mcL Eosinophils # (0.0-0.6) K/mcL Basophils # (0.0-0.2) K/mcL Sodium (136-145) mEq/L Potassium (3.5-5.1) mEq/L Chloride (98-107) mEq/L Carbon Dioxide (23-29) mEq/L BUN (6-20) mg/dL Creatinine (0.60-1.20) mg/dL Est GFR ( Amer) (> 60) Est GFR (Non-Af Amer) (> 60) BUN/Creatinine Ratio (6-26) Glucose (70-105) mg/dL Calculated Osmolality (280-300) Calcium (8.6-10.3) mg/dL Urine Color (Yellow) Urine Clarity (Clear) Urine pH (5.0-8.0) pH Units Ur Specific [place] (1.010-1.025) Urine Protein (Neg-Trace) mg/dL Urine Glucose (UA) (Normal) mg/dL Urine Ketones (Negative) mg/dL Urine Blood (Negative) Urine Nitrite (Negative) Urine Bilirubin (Negative) Urine Urobilinogen (Normal) mg/dL Ur Leukocyte Esterase (Negative) Urine Microscopic RBC (0-3) per hpf Urine Microscopic WBC (0-3) per hpf Ur Squamous Epith Cells (None-Few) per lpf Urine Bacteria (None-Few) per hpf Hyaline Casts (None-Few) per lpf Ur Culture Indicated? (NO) Urine Test Negative (Negative) Attestation Statement - Attestation Attestation: I examined this patient and my medical decision-making was reviewed with the Resident Physician. I agree with the documented findings, disposition and treatment plan as described except to the extent set forth below. Findings consistent with obstructive uropathy. We will admit for urology consultation, pain control. Unfortunately the patient would not tolerate discharge that she is pale, vomiting, this is despite multiple medication interventions. She will be admitted for further management and supportive care.
[2018-03-11] MEDS ORDERED: Acetaminophen 325 MG TABLET PO PRN (00:23)
[2018-03-11] MEDS ORDERED: Naloxone 0.4 MG/ML INJ IVP PRN (00:23)
[2018-03-11] MEDS ORDERED: *HR* HYDROcodone/Acet 5/325 mg TABLET PO PRN (00:23)
--- NOTE | 2018-03-11 00:29 | Internal Med History&Physical ---
Date of Encounter: 03/11/18 Time of Encounter: 00:26 Internal Medicine - H&P: HPI Chief complaint: Abdominal pain Admitted From: Emergency Dept Plans for Post Hospital Care: Home History of present illness: Ms. Riojas is a 43 year old female with history of morbid obesity, hiatal hernia, and depression who presents with right-sided flank pain radiating to her right lower quadrant. She has had history of kidney stones in the past that required retrieval by urology. This started only a few hours ago this evening suddenly. Reports nausea with no vomiting. She is feeling "feverish" and has chills. The patient had a urinalysis that showed moderate amount of blood and moderate leukocyte esterase. In the ED she was hemodynamically stable . Labs were unremarkable. CT abdomen and pelvis showed mild right-sided hydronephrosis with a 1.2 mm calculus at the ureteral pelvic junction. There is also comment of hepatosplenomegaly which was not present previously on previous CTs. Denies headache, blurry vision, dizziness, chest pain, shortness breath, diarrhea, constipation, neurological symptoms. Past Med Surg Social Fam HX - Past Medical History Medical history: kidney stones Additional medical history: hernia, dysmenorrhea, adenomyosis, bilateral dermoid/teratomas, irregular heart beat Psychiatric history: anxiety, depression - Past Surgical History Surgical History: cholecystectomy, other Additional surgical history: lithotripsy x5, dermoid cyst removal, tubes in ears, partial hysterectomy, hypothermal ablation, left ankle/foot, LLE ACL repair. - Social History Smoking Status: Former smoker Smokeless Tobacco Status: No Alcohol use: occasionally Drug use: none - Family History Father Living Status: Still Living Hx Family Cardiac Disorders: Yes ([place] (multiple)) Hx Family Endocrine Disorder: Yes (DM) Mother Living Status: Still Living Hx Family Endocrine Disorder: Yes (DM) Internal Medicine - H&P: Meds Omeprazole [PriLOSEC] 20 mg PO DAILY 03/11/18 [History] Paroxetine [Paxil] 20 mg PO DAILY 03/11/18 [History] Allergy/AdvReac Type Severity Reaction Status Date / Time No Known Allergies Allergy Verified 09/27/17 15:16 All Systems PM: A 10-system review of systems was performed and is negative for pertinent findings except as documented above in the HPI. Review of systems: All systems reviewed are negative except for as mentioned above - Constitutional Vitals: Temp Pulse Resp BP Pulse Ox 98 F 73 20 136/97 96 03/10/18 22:10 03/10/18 22:10 03/10/18 22:10 03/10/18 22:10 03/10/18 22:10 Exam: GEN: NAD HEENT: AT, NC, No cyanosis, oral mucosa is moist, No JVD Lymphatics: No lymphadenoapthy Eyes: Extrocular muscles intact, anicteric CVS:RRR. S1, S2, No m/r/g RESP: CTAB ABD: Soft, right lower quadrant tenderness, ND, +BS EXT: No edema, No rashes, 2+ DP NEURO: Nonfocal, CN II-XII intact, No focal motor or sensory deficits Psych: Cooperative, Not anxious or depressed Internal Med - H&P Results - Labs CBC & Chem 7: 03/10/18 22:30 03/10/18 22:30 Labs: Short CBC 03/10/18 Range/Units 22:30 WBC 11.0 (4.3-11.1) K/mcL Hgb 14.6 (11.5-15.4) g/dL Hct 44.4 (35.3-44.9) % Plt Count 244 (140-400) K/mcL Neutrophils # 8.2 (1.6-8.9) K/mcL BMP 03/10/18 22:30 Sodium 137 Potassium 3.9 Chloride 104 Carbon Dioxide 24 BUN 17 Creatinine 0.74 Glucose 140 H Calcium 9.3 Urine 03/10/18 Range/Units 23:01 Urine Color Yellow (Yellow) Urine Clarity Cloudy A (Clear) Urine pH 5.5 (5.0-8.0) pH Units Ur Specific [place] 1.019 (1.010-1.025) Urine Protein Negative (Neg-Trace) mg/dL Urine Glucose (UA) Normal (Normal) mg/dL - Impressions ITS Impressions Abdomen/Pelvis CT 03/10/18 22:23 IMPRESSION: 1. Mild right hydronephrosis secondary to 1.2 mm calculus at the ureteropelvic junction. 2. Hepatosplenomegaly. 3. Diverticulosis without obvious inflammation. D/ / Kane Murray MD / Kane Murray MD Interpreting Provider: Kane Murray MD - Assessment and plan (1) Kidney stone Current Visit: Yes Status: Acute Assessment and plan: We will admit for pain control. has a small stone on the right measuring 1.2 mm. IV fluids. Antiemetics. We will strain her urine prn with voiding. We will consult neurology in the morning if she continues to be in pain and has not passed stone. Has needed stone retrieval in the past by urology. NPO for now. I have ordered blood cultures and urine cultures and started her on ceftriaxone empirically. (2) Hydronephrosis with urinary obstruction due to renal calculus Current Visit: No Status: Acute Assessment and plan: Likely due to kidney stone. We will monitor for now. Likely resolve with passing the kidney stone. (3) UTI (urinary tract infection) Current Visit: No Status: Acute Assessment and plan: This is not definitive. I have started her on abx empirically for now as mentioned above and ordered blood cultures and urine cultures Qualifiers: Urinary tract infection type: site unspecified Hematuria presence: with hematuria Qualified Code(s): N39.0 - Urinary tract infection, site not specified; R31.9 - Hematuria, unspecified (4) Hepatosplenomegaly Current Visit: Yes Status: Acute Assessment and plan: Unclear etiology. I have ordered LFTs and hepatitis panel. This may need followed up on in the outpatient setting. (5) Depression Current Visit: Yes Status: Acute Assessment and plan: resume home paxil Qualifiers: Depression Type: unspecified Qualified Code(s): F32.9 - Major depressive disorder, single episode, unspecified (6) Morbid obesity Current Visit: Yes Status: Acute Assessment and plan: counseled (7) DVT prophylaxis Current Visit: No Status: Acute Assessment and plan: Heparin subcutaneous - Time Spent With Patient Total time spent is greater than 50% in coordination of care (as documented) at patient's floor/unit and/or counseling patient:
[2018-03-11] MEDS ORDERED: Ondansetron 4 MG/2 ML VIAL IVP PRN (00:30)
[2018-03-11] MEDS: 0.9 % Sodium Chloride 1,000 ML IVC SCH ×3 (00:34→11:21)
[2018-03-11] MEDS ORDERED: cefTRIAXone 2,000 MG in Water for inj. (sterile) 20 ML 20 ML IVPB SCH (01:00)
[2018-03-11 01:21] LABS: Albumin 3.6 g/dL (3.5-5.7); Albumin/Globulin Ratio 1.3 (1.1-2.2); Bilirubin,Indirect 0.4 mg/dL (0.0-1.2); Bilirubin,Total 0.4 mg/dL (0.3-1.0); Globulin 2.7 g/dL (2.4-3.5); Total Protein 6.3 g/dL (6.4-8.9)
[2018-03-11 03:39] LABS: Hepatitis A Antibody IgM Nonreactive (Nonreactive); Hepatitis B Core IgM Nonreactive (Nonreactive); Hepatitis B Surface Antigen Nonreactive (Nonreactive); Hepatitis C Virus Antibody Nonreactive (Nonreactive)
[2018-03-11] MEDS: Ketorolac 15 MG/ML VIAL IVP SCH ×2 (05:09→11:22)
[2018-03-11] MEDS: *HR* Heparin 5,000 UNIT/ML VIAL SQ SCH ×2 (05:10→14:41)
[2018-03-11 11:00] VITALS: BP 99/65
--- NOTE | 2018-03-11 14:47 | Discharge Summary ---
- NOTES TO OUTPATIENT PROVIDER Notes to Outpatient Provider: f/u with PCP within 2 weeks. Orders not resulted at time of discharge: Pending orders 03/11/18 02:01 Culture,Blood [BC] Stat 03/11/18 05:19 Culture,Urine [RM] Stat Date of Encounter: 03/11/18 Time of Encounter: 14:44 - Discharge Diagnosis (1) UTI (urinary tract infection) Priority: Primary Status: Acute Qualifiers: Urinary tract infection type: site unspecified Hematuria presence: with hematuria Qualified Code(s): N39.0 - Urinary tract infection, site not specified; R31.9 - Hematuria, unspecified (2) Hydronephrosis with urinary obstruction due to renal calculus Priority: Primary Status: Acute (3) DVT prophylaxis Priority: Primary Status: Acute (4) Kidney stone Priority: Primary Status: Acute (5) Hepatosplenomegaly Priority: Primary Status: Acute (6) Morbid obesity Priority: Secondary Status: Chronic (7) Depression Priority: Secondary Status: Acute Qualifiers: Depression Type: unspecified Qualified Code(s): F32.9 - Major depressive di sorder, single episode, unspecified Hospital course: Ms. Riojas is a 43 year old female with history of morbid obesity, hiatal hernia, and depression who presents with right-sided flank pain radiating to her right lower quadrant. She has had history of kidney stones in the past that required retrieval by urology. This started only a few hours ago this evening suddenly. Reports nausea with no vomiting. She is feeling "feverish" and has chills. The patient had a urinalysis that showed moderate amount of blood and moderate leukocyte esterase. In the ED she was hemodynamically stable . Labs were unremarkable. CT abdomen and pelvis showed mild right-sided hydronephrosis with a 1.2 mm calculus at the ureteral pelvic junction. There is also comment of hepatosplenomegaly which was not present previously on previous CTs. Pt was treated with IV hydration and antibiotics. She spontaneously passed the stone. Her pain has resolved. She will be discharged home today with oral Keflex for 5 more days. She will f/u with PCP for hepatospenomegaly. Discharge discussed with: patient, family Time spent discussing smoking cessation with patient: more than 10 minutes - Time Spent with Patient Total time spent providing and/or coordinating discharge services: Greater than 30 minutes - Discharge Medications Prescriptions: Cephalexin [Keflex] 500 mg PO BID #10 capsule Home Medications: Cephalexin [Keflex] 500 mg PO BID #10 capsule 03/11/18 [Rx] Omeprazole [PriLOSEC] 40 mg PO DAILY 03/11/18 [History] Paroxetine [Paxil] 20 mg PO DAILY 03/11/18 [History] Allergies/Adverse Reactions: Allergy/AdvReac Type Severity Reaction Status Date / Time No Known Allergies Allergy Verified 03/11/18 13:31 Date of admission: 03/11/18 00:28 Primary care physician: Marci Cruz DO Anticipated date of discharge: 03/11/18 - Constitutional Vitals: Temp Pulse Resp BP Pulse Ox 97.5 F L 81 18 99/65 94 03/11/18 10:56 03/11/18 10:56 03/11/18 10:56 03/11/18 10:56 03/11/18 10:56 General appearance: Present: cooperative, A&O X 3, answers questions appropriately Exam: PHYSICAL EXAMINATION: GENERAL APPEARANCE: The patient is alert, oriented and in no acute distress. HEENT: Head is normocephalic. The sinuses are nontender. Pupils are equal and reactive. The nares are patent. Oropharynx clear without lesions. NECK: Supple without lymphadenopathy. HEART: Regular rate and rhythm. LUNGS: No crackles or wheezes are heard. ABDOMEN: Soft, nontender, nondistended with good bowel sounds heard. Inguinal area is normal. EXTREMITIES: Without cyanosis, clubbing or edema. NEUROLOGICAL: Gross nonfocal. SKIN: Warm and dry without any rash. - Patient Status Disposition: Home, Self-Care Condition: Fair Functional capacity at discharge: independent ambulation Overall status at discharge: patient is back to baseline - Discharge Instructions Follow Up With: Marci Cruz DO [Primary Care Provider] - - Diet and Activity Activity: increase activity as tolerated Diet: advance to your usual diet
== END 2018-03-11 15:10 | disposition home or self-care (01) ==
LOC: EMEROOARM 21:38 → 3BNU 21:38
PROVIDERS: ADMIT Internal Medicine; ATTEND Internal Medicine

== ENCOUNTER 2019-08-29 06:09 | Observation (INO) ==
[2019-08-29] MEDS ORDERED: Ondansetron 4 MG/2 ML VIAL IVP ONE (06:35)
[2019-08-29] MEDS ORDERED: 0.9 % Sodium Chloride 1,000 ML IVC ONE (06:35)
[2019-08-29 06:46] LABS: Basophils % 0.2 %; Eosinophils # 0.1 K/mcL (0.0-0.6); Eosinophils % 1.6 %; Hematocrit 43.6 % (35.3-44.9); Immature Granulocytes % 0.2 % (0-4); Lymphocytes # 1.9 K/mcL (0.6-4.6); Lymphocytes % 22.3 %; Mean Corpuscular HGB Conc 32.1 g/dL (31.6-35.5); Mean Corpuscular Hemoglobin 30.2 pg (28.0-33.3); Mean Corpuscular Volume 94.2 fL (83.0-100.0); Mean Platelet Volume 11.7 fL (9.4-12.4); Monocytes # 0.7 K/mcL (0.0-1.3); Monocytes % 7.6 %; Neutrophils # 5.8 K/mcL (1.6-8.9); Platelet Count 182 K/mcL (140-400); Red Blood Count 4.63 M/mcL (3.82-4.97); Segmented Neutrophils % 68.1 %; White Blood Count 8.5 K/mcL (4.3-11.1)
[2019-08-29 06:48] LABS: Bilirubin,Urine Negative (Negative); Blood,Urine Negative (Negative); Clarity,Urine Cloudy (Clear); Color,Urine Yellow (Yellow); Glucose,Urine (UA) Normal (Normal); Ketones,Urine Negative (Negative); Leukocyte Esterase,Urine Small (Negative); Nitrite,Urine Negative (Negative); PH,Urine 6.5 pH Units (5.0-8.0); Protein,Urine Negative (Neg-Trace); Specific Gravity,Urine 1.019 (1.010-1.025); Urobilinogen,Urine Normal (Normal)
[2019-08-29 06:49] LABS: Bacteria,Urine Few per hpf (None-Few); Hyaline Casts,Urine None Seen per lpf (None-Few); RBC,Urine 0-3 per hpf (0-3); Squamous Epithelial Cell,Urine Many per lpf (None-Few); WBC,Urine 15-30 per hpf (0-3)
[2019-08-29 07:08] LABS: Alanine Aminotransferase 7 Units/L (7-52); Albumin 3.7 g/dL (3.5-5.7); Albumin/Globulin Ratio 1.5 (1.1-2.2); Alkaline Phosphatase 74 Units/L (34-104); Amylase 23 Units/L (29-103); Aspartate Amino Transferase 10 Units/L (13-39); BUN/Creatinine Ratio 19 (6-26); Bilirubin,Direct 0.1 mg/dL (0.0-0.2); Bilirubin,Indirect 0.6 mg/dL (0.0-1.0); Bilirubin,Total 0.7 mg/dL (0.3-1.0); Blood Urea Nitrogen 13 mg/dL (6-20); Calcium 8.5 mg/dL (8.6-10.3); Carbon Dioxide 23 mEq/L (23-29); Chloride 111 mEq/L (98-107); Globulin 2.4 g/dL (2.4-3.5); Glucose 110 mg/dL (70-105); Lipase 68 Units/L (11-82); Osmolality,Calculated 289 (280-300); Sodium 139 mEq/L (136-145); Total Protein 6.1 g/dL (6.4-8.9); eGFR For African Americans > 60 (> 60); eGFR For Non-African Americans > 60 (> 60)
[2019-08-29] MEDS ORDERED: Isovue-370 500 ML BOTTLE IVP ONE (07:42)
[2019-08-29] MEDS ORDERED: Ketorolac 15 MG/ML VIAL IVP ONE (09:17)
[2019-08-29] MEDS ORDERED: Ondansetron 4 MG/2 ML VIAL IVP PRN (12:26)
[2019-08-29] MEDS ORDERED: Naloxone 0.4 MG/ML INJ IVP PRN (12:26)
[2019-08-29] MEDS ORDERED: 0.9 % Sodium Chloride 1,000 ML IVC SCH (12:30)
[2019-08-29] MEDS ORDERED: Morphine Sulfate 2 MG/ML SYRINGE IVP PRN (12:38)
[2019-08-29] MEDS ORDERED: Gadolinium Contrast Agent (WT Based) IV PRN (12:41)
[2019-08-29] MEDS ORDERED: *HR* Heparin 5,000 UNIT/ML VIAL SQ SCH (14:00)
[2019-08-29 18:33] VITALS: BP 131/87
[2019-08-30] MEDS ORDERED: Multivit/Ca/Min/Fe/FA 1 TAB TABLET PO SCH (09:00)
[2019-08-30] MEDS ORDERED: Famotidine 20 MG TABLET PO SCH (09:00)
== END 2019-08-29 19:48 | disposition left against medical advice (07) ==
LOC: 3BNU 06:09 → EMEROOARM 06:09 → 3BNU 13:03
PROVIDERS: ADMIT Family Medicine; ATTEND Family Medicine